=== PATIENT | male | born 1960 | race Caucasian/White ===

== ENCOUNTER 2020-10-21 15:38 | Emergency (ER) | payer OTHER ==
[~2020-10-21] VITALS: Ht 185.4 cm; Wt 127.0 kg
[2020-10-21] MEDS ORDERED: FISH OIL 1,2001 EAC7 PO (20:55)
[2020-10-21] MEDS ORDERED: GABA300 PO (20:55)
[2020-10-21] MEDS ORDERED: GLUCOSE4 GM PO (20:56)
[2020-10-21] MEDS ORDERED: Hydroxyzine HCl50 MG PO (20:57)
[2020-10-21] MEDS ORDERED: INSULANI SC (20:58)
[2020-10-21] MEDS ORDERED: ROSU5 PO (20:59)
[2020-10-21] MEDS ORDERED: Lamictal25 MG PO (20:59)
[2020-10-21] MEDS ORDERED: Prinivil10 MG PO (20:59)
[2020-10-21] MEDS ORDERED: TRAM50 PO (21:00)
[2020-10-21] MEDS ORDERED: ZIPR80 PO (21:01)
[2020-10-23] MEDS ORDERED: XARELTO15 MG PO (08:25)
== END 2020-10-21 17:57 | disposition left against medical advice (07) ==
LOC: ER 15:38
DX: I82.421 Acute embolism and thrombosis of right iliac vein (principal); N18.9 Chronic kidney disease, unspecified
CPT/HCPCS: 93971; 99283-25

== ENCOUNTER 2022-08-10 10:54 | Emergency (ER) | payer OTHER ==
[~2022-08-10] VITALS: Ht 185.4 cm; Wt 124.7 kg
[~2022-08-10 10:54] MED LIST: FISH OIL 1,2001 EAC7 PO; GABA300 PO; GLUCOSE4 GM PO; Hydroxyzine HCl50 MG PO; INSULANI SC; Lamictal25 MG PO; Prinivil10 MG PO; ROSU5 PO; TRAM50 PO; XARELTO15 MG PO; ZIPR80 PO
[2022-08-10 11:40] LABS: BASOPHILS ABSOLUTE AUTO 0.03 K/mm3 (0.00-0.23); BASOPHILS PERCENT AUTO 1 % (0-2); EOSINOPHILS ABSOLUTE AUTO 0.18 K/mm3 (0.00-0.68); EOSINOPHILS PERCENT AUTO 4 % (0-6); Hematocrit 41.2 % (37.0-53.0); Hemoglobin 13.7 g/dL (13.5-17.5); IMMATURE GRAN ABSOLUTE AUTO 0.01 K/mm3 (0.00-0.10); IMMATURE GRAN PERCENT AUTO 0 % (0-1); LYMPHOCYTES ABSOLUTE AUTO 1.45 K/mm3 (0.84-5.20); LYMPHOCYTES PERCENT AUTO 32 % (21-46); MONOCYTES PERCENT AUTO 7 % (4-13); Mean Corpuscular HGB 28.5 pg (26.0-34.0); Mean Corpuscular HGB Conc 33.3 g/dL (31.5-36.5); Mean Corpuscular Volume 86 fL (80-100); Mean Platelet Volume 10.2 fL (9.1-12.4); NEUTROPHILS PERCENT AUTO 56 % (41-73); Platelet Count 86 K/mm3 (150-400); RDW Coefficient Variation 14.2 % (11.7-14.2); RDW Standard Deviation 44.4 fL (35.1-46.3); Red Blood Cell Count 4.81 M/mm3 (4.30-5.90); White Blood Cell Count 4.47 K/mm3 (4.00-11.30)
[2022-08-10 12:20] LABS: Albumin, Blood 3.2 g/dL (3.4-5.0); Albumin/Globulin Ratio 0.7 (0.8-1.8); Bilirubin, Total 0.5 mg/dL (0.1-1.0); Bun/Creatinine Ratio 24.2 (12.0-20.0); Creatinine, Blood 2.11 mg/dL (0.60-1.20); Globulin, Blood 4.5 g/dL (2.2-4.0); Potassium, Blood 5.3 mmol/L (3.5-5.5); Total Protein, Blood 7.7 g/dL (6.4-8.2)
[2022-08-10] MEDS ORDERED: COLCHICINE0.6 MG PO (13:58)
[2022-08-10 14:00] VITALS: BP 113/76
== END 2022-08-10 14:14 | disposition home or self-care (01) ==
LOC: ER 10:54
PROVIDERS: Physician Assistant
DX: R07.89 Other chest pain (principal); Z79.899 Other long term (current) drug therapy; Z79.4 Long term (current) use of insulin; N18.9 Chronic kidney disease, unspecified; F43.10 Post-traumatic stress disorder, unspecified
CPT/HCPCS: 71046; 80053; 83690; 84484; 85025; 93005; 93010; 99285-25; A9270

== ENCOUNTER 2024-04-15 16:54 | Emergency (ER) | payer OTHER ==
[~2024-04-15] VITALS: Ht 185.4 cm; Wt 131.5 kg
[~2024-04-15 16:54] MED LIST changes: +COLCHICINE0.6 MG PO
[2024-04-15 17:13] VITALS: BP 172/100
[2024-04-15] MEDS ORDERED: Diphth,Pertuss(Acell),Tet Vac 0.5 ML VIAL IM ONE (18:15)
[2024-04-15] MEDS ORDERED: AMOCLA875 PO (19:19)
[2024-04-15] MEDS ORDERED: Amoxicillin/Clavulanate K 875 MG Tab PO ONE (19:20)
== END 2024-04-15 19:31 | disposition home or self-care (01) ==
LOC: ER 16:54
DX: S62.667B Nondisplaced fracture of distal phalanx of left little finger, initial encounter for open fracture (principal); Z79.4 Long term (current) use of insulin; Z79.899 Other long term (current) drug therapy; Z79.02 Long term (current) use of antithrombotics/antiplatelets; W23.0XXA Caught, crushed, jammed, or pinched between moving objects, initial encounter
CPT/HCPCS: 12001; 29130; 73140; 90471; 90715; 99283-25; A9270

== ENCOUNTER 2024-04-19 11:12 | Emergency (ER) | payer OTHER ==
[~2024-04-19] VITALS: Ht 185.4 cm; Wt 131.5 kg
[~2024-04-19 11:12] MED LIST changes: +AMOCLA875 PO
[2024-04-19] MEDS ORDERED: Ondansetron HCl 2 MG / ML 2ML Vial IV PRN (12:20)
[2024-04-19 12:49] LABS: BASOPHILS ABSOLUTE AUTO 0.02 K/mm3 (0.00-0.23); BASOPHILS PERCENT AUTO 0 % (0-2); EOSINOPHILS PERCENT AUTO 2 % (0-6); Hematocrit 29.6 % (37.0-53.0); Hemoglobin 9.6 g/dL (13.5-17.5); IMMATURE GRAN ABSOLUTE AUTO 0.01 K/mm3 (0.00-0.10); IMMATURE GRAN PERCENT AUTO 0 % (0-1); LYMPHOCYTES ABSOLUTE AUTO 0.79 K/mm3 (0.84-5.20); LYMPHOCYTES PERCENT AUTO 17 % (21-46); MONOCYTES ABSOLUTE AUTO 0.39 K/mm3 (0.16-1.47); MONOCYTES PERCENT AUTO 9 % (4-13); Mean Corpuscular HGB 26.7 pg (26.0-34.0); Mean Corpuscular HGB Conc 32.4 g/dL (31.5-36.5); Mean Corpuscular Volume 83 fL (80-100); NEUTROPHILS ABSOLUTE AUTO 3.28 K/mm3 (1.96-9.15); NEUTROPHILS PERCENT AUTO 72 % (41-73); Platelet Count 78 K/mm3 (150-400); RDW Coefficient Variation 14.2 % (11.7-14.2); RDW Standard Deviation 43.3 fL (35.1-46.3); Red Blood Cell Count 3.59 M/mm3 (4.30-5.90); White Blood Cell Count 4.59 K/mm3 (4.00-11.30)
[2024-04-19 13:08] LABS: Albumin/Globulin Ratio 0.6 (0.8-1.8); Bilirubin, Total 0.8 mg/dL (0.1-1.0); Bun/Creatinine Ratio 30.1 (12.0-20.0); Calcium, Blood 8.7 mg/dL (8.5-10.1); Creatinine, Blood 2.29 mg/dL (0.60-1.20); Globulin, Blood 4.7 g/dL (2.2-4.0); Potassium, Blood 4.6 mmol/L (3.5-5.5); Total Protein, Blood 7.7 g/dL (6.4-8.2)
[2024-04-19 15:18] LABS: Source, Urine Clean Catch
[2024-04-19 15:26] LABS: Appearance, Urine Clear (Clear); Bilirubin, Urine Neg (Neg); Blood, Urine 1+ (Neg); Color, Urine Yellow (P-Yellow); Glucose Qualitative, Urine 4+ (Neg); Ketones, Urine Neg (Neg); Leukocyte Esterase, Urine Neg (Neg); Nitrite, Urine Neg (Neg); Protein, Urine 1+ (Neg); Urobilinogen, Urine NORM (Normal)
[2024-04-19 15:32] LABS: International Normalized Ratio 1.17; Prothrombin Time Results 12.4 Sec (9.7-11.5)
[2024-04-19 15:35] LABS: Bacteria Few /hpf; Red Blood Cells, Urine 0-2 /hpf (0-2); Squamous Epithelial Cells Few /hpf (Few); White Blood Cells, Urine 0-2 /hpf (0-5); Yeast/Fungi Urine Few /hpf
[2024-04-19 15:45] VITALS: BP 152/98
== END 2024-04-19 15:58 | disposition home or self-care (01) ==
LOC: ER 11:12
PROVIDERS: Emergency Medicine; Physician Assistant
DX: K62.5 Hemorrhage of anus and rectum (principal); F43.10 Post-traumatic stress disorder, unspecified; Z79.899 Other long term (current) drug therapy; Z79.4 Long term (current) use of insulin
CPT/HCPCS: 80053; 81001; 85025; 85610; 85730; 86850; 86900; 86901; 99284

== ENCOUNTER → 2024-06-19 | Outpatient (CLI) | payer OTHER ==
[2024-06-19 14:57] LABS: Source, Urine Clean Catch
[2024-06-19 17:24] LABS: Appearance, Urine Clear (Clear); Bilirubin, Urine Neg (Neg); Blood, Urine Neg (Neg); Glucose Qualitative, Urine 1+ (Neg); Ketones, Urine Neg (Neg); Leukocyte Esterase, Urine Neg (Neg); Nitrite, Urine Neg (Neg); Protein, Urine 1+ (Neg); Urobilinogen, Urine NORM (Normal)
[2024-06-19 17:26] LABS: BASOPHILS ABSOLUTE AUTO 0.03 K/mm3 (0.00-0.23); BASOPHILS PERCENT AUTO 1 % (0-2); EOSINOPHILS ABSOLUTE AUTO 0.13 K/mm3 (0.00-0.68); EOSINOPHILS PERCENT AUTO 3 % (0-6); Hematocrit 36.2 % (37.0-53.0); Hemoglobin 11.6 g/dL (13.5-17.5); IMMATURE GRAN ABSOLUTE AUTO 0.01 K/mm3 (0.00-0.10); IMMATURE GRAN PERCENT AUTO 0 % (0-1); LYMPHOCYTES ABSOLUTE AUTO 1.01 K/mm3 (0.84-5.20); LYMPHOCYTES PERCENT AUTO 25 % (21-46); MONOCYTES ABSOLUTE AUTO 0.43 K/mm3 (0.16-1.47); MONOCYTES PERCENT AUTO 10 % (4-13); Mean Corpuscular HGB 27.3 pg (26.0-34.0); Mean Corpuscular Volume 85 fL (80-100); Mean Platelet Volume 11.1 fL (9.1-12.4); NEUTROPHILS ABSOLUTE AUTO 2.51 K/mm3 (1.96-9.15); NEUTROPHILS PERCENT AUTO 61 % (41-73); Platelet Count 56 K/mm3 (150-400); RDW Coefficient Variation 18.8 % (11.7-14.2); RDW Standard Deviation 59.4 fL (35.1-46.3); Red Blood Cell Count 4.25 M/mm3 (4.30-5.90); White Blood Cell Count 4.12 K/mm3 (4.00-11.30)
[2024-06-19 17:38] LABS: Color, Urine Pale Yellow (P-Yellow)
[2024-06-19 21:57] LABS: Iron Serum 92 ug/dL (65-175); Percent Saturation 21.8 % (20.0-50.0); Total Iron Binding Capacity 422 ug/dL (250-450)
[2024-06-19 22:02] LABS: Anion Gap 10 mmol/L (3-11); Blood Urea Nitrogen 55 mg/dL (8-24); CO2, Blood 21 mmol/L (21-32); Calcium, Blood 8.6 mg/dL (8.5-10.1); Chloride, Blood 111 mmol/L (98-108); Creatinine, Blood 2.39 mg/dL (0.60-1.20); Ferritin, Serum 29 ng/mL (26-388); Glomerular Filtration Rate 30 (60-); Glucose, Blood 169 mg/dL (70-99); Phosphorus, Blood 4.2 mg/dL (2.5-4.9); Potassium, Blood 4.5 mmol/L (3.5-5.5); Sodium, Blood 137 mmol/L (136-145)
== END ==
LOC: LAB 14:54 → LAB SHORT 14:54
PROVIDERS: Internal Medicine Nephrology
DX: I12.9 Hypertensive chronic kidney disease with stage 1 through stage 4 chronic kidney disease, or unspecified chronic kidney disease (principal); N18.32 Chronic kidney disease, stage 3b; D63.1 Anemia in chronic kidney disease
CPT/HCPCS: 36415; 80069; 82728; 83540; 83550; 83970; 85025

== ENCOUNTER 2024-06-26 17:26 | Emergency (ER) | payer OTHER ==
[~2024-06-26] VITALS: Ht 185.4 cm; Wt 131.5 kg
[2024-06-26 18:21] VITALS: BP 134/82
== END 2024-06-26 21:03 | disposition home or self-care (01) ==
LOC: ER 17:26
DX: I82.431 Acute embolism and thrombosis of right popliteal vein (principal); Z79.01 Long term (current) use of anticoagulants; Z79.84 Long term (current) use of oral hypoglycemic drugs; Z79.899 Other long term (current) drug therapy; Z79.891 Long term (current) use of opiate analgesic; Z79.4 Long term (current) use of insulin; Z79.2 Long term (current) use of antibiotics; N18.9 Chronic kidney disease, unspecified
CPT/HCPCS: 93971; 99283-25